=== PATIENT | female | born 1990 | race Caucasian/White ===

== ENCOUNTER → 2016-06-16 | Outpatient (CLI) | payer OTHER ==
--- NOTE | 2016-06-16 15:34 | MAMMOGRAPHY REPORT ---
ULTRASOUND OF RIGHT BREAST: 06/16/2016 CLINICAL HISTORY: 25-year-old woman with 2 palpable lumps in the right breast 2:00 and 8:00 axes. S he reports she has had them for years but the lump in the 2:00 axis seems to be increasing in size. COMPARISON: No prior exams were available for comparison. FINDINGS: Real-time high-resolution sonographic evaluation was performed in the areas of palpable junior mps pointed out by the patient (in the 2:00 and 8:00 axes of the right breast close been. In the 2: 00 right breast, 5 cm from the nipple, there is a lobulated parallel hypoechoic solid mass measuring 2.7 x 1.5 x 3.5 cm. In the 8:00 right breast, 2 cm from the nipple, a similar appearing parallel h ypoechoic solid mass is identified measuring 2.3 x 1.5 x 2.5 cm. 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 IMPRESSION: ACR BI-RADS CATEGORY 4: SUSPICIOUS - FOLLOW-UP RECOMMENDED 1. Ultrasound guided core needle biopsy 2 in the right breast is recommended for solid palpable ma sses in the 2:00 and 8:00 axes. These results and recommendations were discussed with the patient at the time of the exam. She tent atively scheduled the right breast biopsies prior to leaving our department. Miriam Jones M.D. ay/:06/16/2016 14:29:46 [employer] Specialist: Dr. Miriam Jones, [facility] letter sent: Abnormal 4/5 BI-RADS Code: ACR BI-RADS Category 4: Suspicious
== END | disposition home or self-care (01) ==
LOC: C.MAMM 13:15
PROVIDERS: ATTEND Nurse Practitioner Women's Health
DX: N63 Unspecified lump in breast (principal)

== ENCOUNTER → 2016-06-29 | Outpatient (CLI) | payer OTHER ==
--- NOTE | 2016-06-29 11:21 | Discharge Instructions ---
Discharge Instructions Procedure Procedure Date: Jun 29, 2016. Reason for visit: Right Masses. Discharge Discharge Date: Jun 29, 2016. Discharge Diagnosis: post right breast ultrasound guided core biopsies in the 2:00 and 8:00 axes Instructions Activity Recommendations: Additional Limitations (see below) Return to School/Work: no limitations Recommended Home Diet: No Limitations Provider Instructions: ACTIVITY RECOMMENDATIONS: * No lifting, pushing, pulling or exercising the affected side for three days. RETURN TO SCHOOL/WORK: * You may return to work/school after the procedure, but do not perform any strenuous activities for 24 to 48 hours. MEDICATIONS: * Tylenol (two 325 mg) every four to six hours if needed for mild pain (if not allergic to Tylenol). DIET: * Resume previous diet. SPECIAL CARE INSTRUCTIONS: * Keep biopsy site dry for 24 hours. May shower after 24 hours, but do not soak (bathe) incision. * May remove Tegaderm (plastic patch) tomorrow AFTER showering. * Leave the steri-strips on for one week. Allow the steri-strips to fall off by themselves. If not off after one week, you may remove them. You may place a Bandaid crosswise over the strips, if desired. * Apply ice 10 minutes on and 10 minutes off as needed. * Wear a bra at bedtime to sleep more comfortably for 2-3 days. * Your referring physician should have the results after approximately 5 to 7 business days. * Call for unusual bleeding, fever, drainage, etc or if you have any questions call [phone] during normal business hours or after hours call Dr Jones, . FOLLOW UP VISIT: Follow-up with Referring Physician as scheduled. Nichelle Troy Recommendations: Call your doctor if: * Temperature above 101 degrees * Pain not relieved by pain medicine ordered * There is increased drainage or redness from any incision * You have any unanswered questions or concerns. Your Doctors Instructions noted above were prepared by provider Miriam Jones. Patient Signature Section: Patient Instructions Signature Page [facility] Patient (or Guardian) Signature/Date: I have read and understand the instructions given to me by my caregivers. Caregiver/RN/Doctor Signature/Date: The above-named patient and/or guardian has received patient instructions on this date. + Original Patient Signature Page (only) stays with chart. Please make copy for patient.
--- NOTE | 2016-06-29 15:21 | MAMMOGRAPHY REPORT ---
ULTRASOUND GUIDED BIOPSY: 06/29/2016 CLINICAL HISTORY: Indeterminate solid palpable masses in the 2:00 and 8:00 axes of the right breast. Patient presents for ultrasound guided core biopsy 2. Please refer to the report from right breast ultrasound guided core biopsy performed at the same ben e for full detail. IMPRESSION: ULTRASOUND GUIDED BIOPSY Please refer to the report from right breast ultrasound guided core biopsy performed at the same ben e for full detail. Miriam Jones M.D. ay/:06/29/2016 11:23:40 Attending Technologist: Dr. Miriam Jones, [facility] Registered Nurse Post Partum: Marie Jiang RT(R)(M), [facility]
--- NOTE | 2016-06-29 15:21 | MAMMOGRAPHY REPORT ---
MULTIPLE ULTRASOUND GUIDED BIOPSIES RIGHT BREAST: 06/29/2016 CLINICAL HISTORY: 25-year-old woman with indeterminate solid palpable masses in the 2:00 and 8:00 [facility] breast. She presents for ultrasound guided core needle biopsy. COMPARISON: Comparison is made to exam dated: 06/16/2016 ultrasound - [facility]. PATIENT CONSENT: The procedure, risks and benefits were discussed with the patient and informed writ ten consent was obtained. Specific risks to this procedure include: bleeding, infection, puncture of adjacent structure, nontarget biopsy, sampling error, metal allergy and medication reaction. PROCEDURE DESCRIPTION: A time out was performed and the right breast was agreed as the site of both biopsies. The skin was prepped and draped in the usual sterile fashion. First, the solid mass in t he 8:00 breast was chosen as the target for biopsy. Subcutaneous and intraparenchymal 1% buffered li docaine without epinephrine was administered as local anesthesia. A skin incision was made. Through the incision, 3 samples were taken with a 14 gauge Achieve biopsy device. A ribbon shaped metallic marker was placed at the biopsy site. Hemostasis was achieved after manual compression. The patient tolerated the procedure well and there was no immediate complication. Then the solid palpable mass in the 2:00 breast was identified and chosen as target for biopsy. Tyrel tional subcutaneous and intraparenchymal 1% buffered lidocaine without epinephrine was administered as local anesthesia. A skin incision was made. Through the incision, 3 samples were taken with a 14 gauge Achieve biopsy device. A wing shaped metallic marker was placed at the biopsy site. Hemostasi s was achieved after manual compression. The patient tolerated the procedure well and there was no i mmediate complication. All of the samples were sent to the pathology department in appropriately l abeled containers. The patient at the department in satisfactory condition. Post procedure mammography was deferred given the patient's age. IMPRESSION: ULTRASOUND GUIDED BIOPSY Status post ultrasound-guided core needle biopsy 2 in the 2:00 and 8:00 axes of the right breast, w ith metallic biopsy markers placed at the site of each biopsy. The patient will receive notification of the biopsy results from her referring physician. Miriam Jones M.D. ay/:06/29/2016 11:26:17 Attending Technologist: Dr. Miriam Jones, [facility] Post Acute Care Nurse Practitioner: Marie SINHA(R)(M), [facility]
== END | disposition home or self-care (01) ==
LOC: C.MAMM 10:32
PROVIDERS: ATTEND Internal Medicine
DX: N63 Unspecified lump in breast (principal); D24.1 Benign neoplasm of right breast